=== PATIENT | male | born 1980 | race Caucasian/White ===

== ENCOUNTER 2022-06-18 15:37 | Inpatient (IN) ==
[2022-06-18] MEDS ORDERED: Melatonin 3 MG TABLET PO PRN (18:33)
[2022-06-18] MEDS ORDERED: Acetaminophen 325 MG TABLET PO PRN (18:33)
[2022-06-18] MEDS ORDERED: Naloxone 0.4 MG/ML INJ IVP PRN (18:33)
[2022-06-18] MEDS ORDERED: Ondansetron 4 MG/2 ML VIAL IVP PRN (18:33)
[2022-06-18 19:06] LABS: VBG HCO3 21 mEq/L (21-27); VBG PCO2 44 mmHg (41-51); VBG PH 7.28 pH Units (7.32-7.42); VBG PO2 45 mmHg (25-50)
[2022-06-18 19:17] LABS: Hematocrit 42.9 % (37.5-50.1); Mean Corpuscular HGB Conc 32.6 g/dL (31.6-35.5); Mean Corpuscular Hemoglobin 33.3 pg (28.0-33.3); Mean Corpuscular Volume 101.9 fL (83.0-100.0); Mean Platelet Volume 9.7 fL (9.4-12.4); Platelet Count 321 K/mcL (140-400); Red Blood Count 4.21 M/mcL (4.19-5.50); Red Cell Distribution Width 12.9 % (11.5-14.5); White Blood Count 9.8 K/mcL (4.3-11.1)
[2022-06-18 19:31] LABS: Albumin 3.5 g/dL (3.5-5.7); Albumin/Globulin Ratio 1.7 (1.1-2.2); Bilirubin,Total 1.1 mg/dL (0.3-1.0); Calcium 8.6 mg/dL (8.6-10.3); Globulin 2.1 g/dL (2.4-3.5); Magnesium 1.7 mg/dL (1.6-2.6); Potassium 4.8 mEq/L (3.5-5.1); Total Protein 5.6 g/dL (6.4-8.9)
[2022-06-18] MEDS ORDERED: Furosemide 40 MG/4 ML VIAL IVP ONE (19:55)
[2022-06-18] MEDS ORDERED: *HR* Heparin 5,000 UNIT/ML VIAL IVP PRN ×2 (20:00)
[2022-06-18] MEDS ORDERED: Heparin 25,000UNIT/250ML 1/2NS 25,000 UNIT/250 ML IV.SOLN IVC SCH (20:00)
[2022-06-18] MEDS ORDERED: cefTRIAXone 2,000 MG in 0.9 % Sodium Chloride 20 ML IVP ONE (20:31)
[2022-06-18] MEDS ORDERED: *HR* LORazepam 1 MG TABLET PO PRN ×3 (20:31)
[2022-06-18] MEDS: Levalbuterol Neb 0.63 MG/3 ML IH SCH (20:41)
[2022-06-18] MEDS ORDERED: Amiodarone Premix 360 MG/200 ML BAG IVC ONE ×2 (21:46→21:47)
[2022-06-18] MEDS ORDERED: Budesonide/Formoterol 160/4.5 1 PUFF INH IH SCH (22:00)
[2022-06-18] MEDS ORDERED: Simethicone 80 MG TAB.CHEW PO PRN (23:17)
[2022-06-19] MEDS: Levalbuterol Neb 0.63 MG/3 ML IH SCH ×2 (00:09→04:16)
[2022-06-19] MEDS: Albumin Human 5% 12.5 GM/250 ML IV.SOLN IVC SCH ×2 (02:45→05:58)
[2022-06-19] MEDS ORDERED: *HR* Dextrose 50 % in Water (Syg) 50 ML SYRINGE IVP PRN (03:15)
[2022-06-19] MEDS ORDERED: Dextrose Gel 15 GM/37.5 ML TUBE PO PRN ×2 (03:15)
[2022-06-19] MEDS ORDERED: D5% in Water 1,000 ML IVC PRN (03:15)
[2022-06-19] MEDS ORDERED: Amiodarone Premix 360 MG/200 ML BAG IVC SCH (03:45)
[2022-06-19 04:52] LABS: Hematocrit 44.4 % (37.5-50.1); Hemoglobin 13.7 g/dL (12.9-16.9); Mean Corpuscular HGB Conc 30.9 g/dL (31.6-35.5); Mean Corpuscular Hemoglobin 33.6 pg (28.0-33.3); Mean Platelet Volume 9.8 fL (9.4-12.4); Platelet Count 245 K/mcL (140-400); Red Blood Count 4.08 M/mcL (4.19-5.50); Red Cell Distribution Width 13.1 % (11.5-14.5)
[2022-06-19 04:53] LABS: Mean Corpuscular Volume 108.8 fL (83.0-100.0); White Blood Count 15.2 K/mcL (4.3-11.1)
[2022-06-19 05:02] LABS: INR 1.9; Prothrombin Time 20.9 Seconds (9.4-12.1)
[2022-06-19 05:04] LABS: Activated Partial Thrombo Time 39.6 Seconds (26.0-36.0)
[2022-06-19 05:10] LABS: Calcium 8.1 mg/dL (8.6-10.3); Magnesium 1.7 mg/dL (1.6-2.6); Phosphorous 6.9 mg/dL (2.7-4.5); Potassium 5.6 mEq/L (3.5-5.1)
[2022-06-19 05:10] LABS: ABG Base Excess -11 mEq/L (-2 to 3); ABG HCO3 13 mEq/L (21-27); ABG Oxygen Saturation 97 % (95-98); ABG PCO2 24 mmHg (35-45); ABG PH 7.34 pH Units (7.32-7.45); ABG PO2 98 mmHg (85-104); ABG TCO2 14 mEq/L (20-26)
[2022-06-19] MEDS ORDERED: 0.9 % Sodium Chloride 500 ML IVC ONE (05:28)
[2022-06-19] MEDS ORDERED: Milrinone Lactate 10 MG/10 ML VIAL IVP ONE (05:53)
[2022-06-19] MEDS ORDERED: Milrinone Premix 20 MG/100 ML 20 MG/100 ML BAG IVC SCH (06:00)
[2022-06-19 06:08] LABS: Adenovirus Not Detected (Not Detect); Bordetella Pertussis Not Detected (Not Detect); Chlamydophila pneumoniae Not Detected (Not Detect); Coronavirus 229E Not Detected (Not Detect); Coronavirus HKU1 Not Detected (Not Detect); Coronavirus NL63 Not Detected (Not Detect); Coronavirus OC43 Not Detected (Not Detect); Human Metapneumovirus Not Detected (Not Detect); Human Rhinovirus/Enterovirus Not Detected (Not Detect); Influenza A Subtype 2009 H1 Not Detected (Not Detect); Influenza B Not Detected (Not Detect); Mycoplasma pneumoniae Not Detected (Not Detect); Parainfluenza Virus 1 Not Detected (Not Detect); Parainfluenza Virus 2 Not Detected (Not Detect); Parainfluenza Virus 3 Not Detected (Not Detect); Parainfluenza Virus 4 Not Detected (Not Detect); Respiratory Syncytial Virus Not Detected (Not Detect); SARS-CoV-2 Not Detected (Not Detect)
[2022-06-19] MEDS ORDERED: Piperacillin/Tazobactam 3.375 GM in 0.9 % Sodium Chloride Mini Bag 100 ML IVPB SCH (08:00)
[2022-06-19 08:38] VITALS: TEMP 97.8; O2SAT 95
[2022-06-19 08:46] LABS: Amphetamine Screen,Urine Negative ng/mL (Cutoff=1000); Barbiturate Screen,Urine Negative ng/mL (Cutoff=200); Benzodiazepines Screen,Urine Negative ng/mL (Cutoff=200); Cannabinoid Screen,Urine Negative ng/mL (Cutoff = 50); Cocaine Screen,Urine Negative ng/mL (Cutoff= 300); Opiate Screen,Urine Positive ng/mL (Cutoff=300); Phencyclidine Screen,Urine Negative ng/mL (Cutoff=25)
[2022-06-19] MEDS ORDERED: Folic Acid 1 MG TABLET PO SCH (09:00)
[2022-06-19] MEDS ORDERED: Thiamine (B-1) 100 MG TABLET PO SCH (09:00)
[2022-06-19 09:09] VITALS: BP 113/59; PULSE 118
[2022-06-19] MEDS ORDERED: cefTRIAXone 1,000 MG in 0.9 % Sodium Chloride Mini Bag 100 ML IVPB SCH (21:00)
== END 2022-06-19 10:10 | disposition short-term general hospital (02) | DRG 194 ==
LOC: 2NNU → SUATTDRO 18:54 → ICNU 06-19 06:37
PROVIDERS: ADMIT Internal Medicine; ATTEND Internal Medicine